=== PATIENT | male | born 1960 | race Caucasian/White ===

== ENCOUNTER 2016-05-01 08:31 | Emergency (ER) | payer BC, OTHER ==
[~2016-05-01] VITALS: Ht 180.3 cm; Wt 89.9 kg
[2016-05-01 09:13] LABS: BASO % 0 % (0-3); EOS % 0 % (0-3); HEMATOCRIT 44.2 % (39.0-53.0); HEMOGLOBIN 14.7 g/dL (13.0-17.5); LYMPH # 0.6 x10^3/uL (1.0-4.8); LYMPH % 7 % (24-48); MEAN CORPUSCULAR HEMOGLOBIN 31 pg (25-35); MEAN CORPUSCULAR HGB CONC 33 g/dL (31-37); MEAN CORPUSCULAR VOLUME 91 fL (79-100); MONO # 0.4 x10^3/uL (0.0-1.1); MONO % 4 % (0-9); NEUT # 7.9 x10^3uL (1.8-7.7); NEUT % 89 % (31-73); PLATELET COUNT 143 x10^3/uL (140-400); RED BLOOD COUNT 4.84 x10^6/uL (4.30-5.70); RED CELL DISTRIBUTION WIDTH 12.6 % (11.5-14.5); WHITE BLOOD COUNT 8.9 x10^3/uL (4.0-11.0)
[2016-05-01] MEDS ORDERED: ONDANSETRON PF 4 MG/2 ML VIAL. ONE (09:21)
--- NOTE | 2016-05-01 09:28 | RAD ---
CT head without contrast History: Altered mental status. Comparison: None. Procedure: Axial images are obtained of the head from the skull base through the vertex without IV contrast. Findings: The ventricles and sulci are normal for the patient's age. No mass-effect, intracranial mass, midline shift, hemorrhage or obvious acute infarction is identified. Basilar cisterns are patent. Bone windows demonstrate no significant calvarial abnormality. The visualized paranasal sinuses appear clear. Impression: 1. No acute intracranial process. PQRS Compliance Statement: One or more of the following individualized dose reduction techniques were utilized for this examination: 1. Automated exposure control 2. Adjustment of the mA and/or kV according to patient size 3. Use of iterative reconstruction technique
[2016-05-01] MEDS ORDERED: ONDANSETRON PF 4 MG/2 ML VIAL. IV ONE (09:30)
--- NOTE | 2016-05-01 09:33 | RAD ---
Examination: Single frontal view the chest History: History of altered mental status Comparison: None available Findings: The cardiomediastinal silhouette grossly appears unremarkable. There is no acute infiltrate or visualized pneumothorax identified. Impression: No acute cardiopulmonary findings.
[2016-05-01 09:37] LABS: ALBUMIN 3.6 g/dL (3.4-5.0); ALBUMIN/GLOBULIN RATIO 1.2 (1.0-1.7); CALCIUM 8.2 mg/dL (8.5-10.1); CREATININE 0.9 mg/dL (0.7-1.3); GFR 87.6; MAGNESIUM 1.7 mg/dL (1.8-2.4); TOTAL BILIRUBIN 0.4 mg/dL (0.2-1.0); TOTAL PROTEIN 6.5 g/dL (6.4-8.2)
[2016-05-01 09:48] LABS: BARBITURATES NEG (NEG); BENZODIAZEPINES NEG (NEG); CANNABINOIDS NEG (NEG); COCAINE NEG (NEG); METHADONE NEG (NEG); OPIATES NEG (NEG); PHENCYCLIDINE NEG (NEG)
[2016-05-01 09:49] LABS: AMPHETAMINE/METHAMPHETAMINE NEG (NEG)
[2016-05-01 09:52] LABS: BILIRUBIN,URINE NEG (NEG); CLARITY,URINE CLEAR; COLOR,URINE YELLOW; GLUCOSE,URINE 250 mg/dL (NEG)
[2016-05-01 09:53] LABS: BACTERIA,URINE FEW /HPF (0-FEW); GRANULAR CASTS,URINE OCC /HPF; HYALINE CASTS, URINE OCC /HPF; NITRITE,URINE NEG (NEG); SQUAMOUS EPITHELIAL CELL,UR FEW /LPF; UROBILINOGEN,URINE 0.2 mg/dL (0.2 mg/dL)
--- NOTE | 2016-05-01 10:09 | PHYS DOC ---
Past History Past Medical History: Anxiety, Diabetes, High Cholesterol Past Surgical History: Knee Replacement Alcohol Use: None Drug Use: None Adult General Chief Complaint Chief Complaint: ALTERED MENTAL STATUS HPI HPI 56-year-old male patient with history of diabetes was seen in his normal condition at 2200 last night by his daughter. Patient was found by his daughter at 7:30 today with confusion and not talking. Blood sugar was 85 and patient had D50 by EMS without change of his condition. In ER patient is agitated and does not talk and move all of his extremities. Review of Systems Review of Systems Unable to obtain Current Medications Current Medications Current Medications Medications (Trade) Dose Ordered Sig/Charis Start Time Stop Time Status Last Admin Dose Admin Ondansetron HCl (Zofran) 4 mg 1X ONCE 05/01/16 09:30 05/01/16 09:34 DC 05/01/16 09:28 4 MG Allergies Allergies Allergies Coded Allergies Type Severity Reaction Last Updated Verified No Known Drug Allergies 05/01/16 No Physical Exam Physical Exam Constitutional: agitated , not talking HENT: Normocephalic, atraumatic, bilateral external ears normal, oropharynx moist, no oral exudates, nose normal. [] Eyes: PERRLA, EOMI, conjunctiva normal, no discharge. [] Neck: Normal range of motion, no tenderness, supple, no stridor. [] Cardiovascular:Heart rate regular rhythm, no murmur [] Lungs & Thorax: Bilateral breath sounds clear to auscultation [] Abdomen: Bowel sounds normal, soft, no tenderness, no masses, no pulsatile masses. [] Skin: Warm, dry, no erythema, no rash. [] Back: No tenderness, no CVA tenderness. [] Extremities: No tenderness, no cyanosis, no clubbing, ROM intact, no edema. [] Neurologic: limited exam , not talking , follows some commands Psychologic: Affect normal, judgement normal, mood normal. [] Current Patient Data Vital Signs Vital Signs Date Time Temp Pulse Resp B/P Pulse Ox O2 Delivery O2 Flow Rate FiO2 05/01/16 09:42 80 18 136/84 100 Room Air 05/01/16 08:47 97.4 Lab Results Laboratory Tests Test 05/01/16 08:36 05/01/16 09:01 05/01/16 09:20 05/01/16 09:24 Glucose (Fingerstick) 186mg/dL (70-99) H 163mg/dL (70-99) H White Blood Count 8.9x10^3/uL (4.0-11.0) Red Blood Count 4.84x10^6/uL (4.30-5.70) Hemoglobin 14.7g/dL (13.0-17.5) Hematocrit 44.2% (39.0-53.0) Mean Corpuscular Volume 91fL (79-100) Mean Corpuscular Hemoglobin 31pg (25-35) Mean Corpuscular Hemoglobin Concent 33g/dL (31-37) Red Cell Distribution Width 12.6% (11.5-14.5) Platelet Count 143x10^3/uL (140-400) Neutrophils (%) (Auto) 89% (31-73) H Lymphocytes (%) (Auto) 7% (24-48) L Monocytes (%) (Auto) 4% (0-9) Eosinophils (%) (Auto) 0% (0-3) Basophils (%) (Auto) 0% (0-3) Neutrophils # (Auto) 7.9x10^3uL (1.8-7.7) H Lymphocytes # (Auto) 0.6x10^3/uL (1.0-4.8) L Monocytes # (Auto) 0.4x10^3/uL (0.0-1.1) Eosinophils # (Auto) 0.0x10^3/uL (0.0-0.7) Basophils # (Auto) 0.0x10^3/uL (0.0-0.2) Prothrombin Time 10.4SEC (9.4-11.4) Prothrombin Time INR 1.0 (0.9-1.1) PTT 23SEC (23-33) Sodium Level 140mmol/L (136-145) Potassium Level 4.0mmol/L (3.5-5.1) Chloride Level 102mmol/L (98-107) Carbon Dioxide Level 32mmol/L (21-32) Anion Gap 6 (6-14) Blood Urea Nitrogen 15mg/dL (8-26) Creatinine 0.9mg/dL (0.7-1.3) Estimated GFR (Cockcroft-Gault) 87.6 BUN/Creatinine Ratio 17 (6-20) Glucose Level 191mg/dL (70-99) H Lactic Acid Level 1.7mmol/L (0.4-2.0) Calcium Level 8.2mg/dL (8.5-10.1) L Magnesium Level 1.7mg/dL (1.8-2.4) L Total Bilirubin 0.4mg/dL (0.2-1.0) Aspartate Amino Transferase (AST) 28U/L (15-37) Alanine Aminotransferase (ALT) 46U/L (16-63) Alkaline Phosphatase 78U/L (46-116) Creatine Kinase 157U/L (39-308) Creatine Kinase MB (Mass) 1.9ng/mL (0.0-3.6) Creatine Kinase MB Relative Index 1.2% (0-4) Troponin I Quantitative < 0.017ng/mL (0-0.055) EW-Jfs-I-Type Natriuretic Peptide 116pg/mL (0-124) Total Protein 6.5g/dL (6.4-8.2) Albumin 3.6g/dL (3.4-5.0) Albumin/Globulin Ratio 1.2 (1.0-1.7) Lipase 84U/L (73-393) Urine Collection Type Unknown Urine Color Yellow Urine Clarity Clear Urine pH 6.5 Urine Specific [place] 1.020 Urine Protein 30 mg/dl (NEG-TRACE) Urine Glucose (UA) 250mg/dL (NEG) Urine Ketones (Stick) Negmg/dL (NEG) Urine Blood Neg (NEG) Urine Nitrite Neg (NEG) Urine Bilirubin Neg (NEG) Urine Urobilinogen Dipstick 0.2mg/dL (0.2 mg/dL) Urine Leukocyte Esterase Neg (NEG) Urine RBC 1-2/HPF (0-2) Urine WBC 1-4/HPF (0-4) Urine Squamous Epithelial Cells Few/LPF Urine Bacteria Few/HPF (0-FEW) Urine Hyaline Casts Occ/HPF Urine Granular Casts Occ/HPF Urine Mucus Slight/LPF Urine Opiates Screen Neg (NEG) Urine Methadone Screen Neg (NEG) Urine Barbiturates Neg (NEG) Urine Phencyclidine Screen Neg (NEG) Urine Amphetamine/Methamphetamine Neg (NEG) Urine Benzodiazepines Screen Neg (NEG) Urine Cocaine Screen Neg (NEG) Urine Cannabinoids Screen Neg (NEG) Urine Ethyl Alcohol Neg (NEG) EKG EKG EKG at 0 848 showed sinus rhythm with rate of 79 Poor R-wave progress in anteroseptal leads Radiology/Procedures Radiology/Procedures [] Impressions: Altered level of consciousness Course & Med Decision Making Course & Med Decision Making Pertinent Labs and Imaging studies reviewed. (See chart for details) Patient brought in because of confusion are not touching. Patient eventually started to talk but was confused. CT head and labs was unremarkable. Plan to admit patient with diagnosis of altered level of [place]. [place] [id number] Gamez on-call neurology was consulted at [phone]. [] Dragon Disclaimer Dragon Disclaimer This chart was dictated in whole or in part using Voice Recognition software in a busy, high-work load, and often noisy Emergency Department environment. It may contain unintended and wholly unrecognized errors or omissions. Departure Departure: Impression: Primary Impression: Altered level of consciousness Additional Impression: Diabetes mellitus Disposition: 09 ADMITTED INPATIENT (At 1002) Admitting Physician: Ignacio Cheek Condition: IMPROVED Problem Qualifiers CHADWICK NINA MD May 01, 2016 10:09
--- NOTE | 2016-05-01 10:30 | ACF ---
Admission Criteria Forms MENTAL STATUS CHANGE Clinical Indications for Inpatient Care (Place 'X' for any and all applicable criteria): Ongoing inpatient care may be needed for ANY ONE of the following(1)(2)(3)(5)(6) : [X]I. Suspected serious etiology (eg, medical disorder, [employer] event) of mental status change [ ]II. Danger to self or others not manageable at lower level of care [ ]III. Grave disability (eg, inability to perform self care necessary at lower level of care) [ ]IV. Agitation or inappropriate behavior interfering with care for primary condition (eg, attempting to discontinue lines or drains prematurely, unable to cooperate with respiratory care) [ ]V. Delirium [A] [D][E] as described by ANY ONE of the following(26): [ ]a) Delirium due to alcohol or sedative [F] withdrawal [ ]b) Delirium of uncertain etiology that has not responded to appropriate empiric treatment [ ]c) Delirium that prevents performance of a life-sustaining function (eg, feeding or hydrating oneself) [ ]. General contraindications and/or Inappropriate clinical situations for Observational Care in patients with Mental Status Change, when ANY ONE of the following is required: [ ]a) Prediction of prolongation of LOS based on ANY ONE of the following may be considered as a contraindication for observational care 2, 3, 4, 5, 6, 7, 8, 9, 10, 11 [ ]i) Age > 65 yrs. [ ]ii) Patient arriving by ambulance [ ]iii) Patient with high acuity [ ]iv) Patient requiring vital sign monitoring [ ]v) Patient on IV medication [ ]b) Systolic blood pressures 180mmHg 3,12 [ ]c) Patient with altered mental status including delirium and other alteration of consciousness, (3) [ ]d) Patient whose discharge disposition will be to a [facility] home or rehabilitation home should not be managed in Emergency Department Observation Unit. CMS rule requires 3 days hospital stay before such placement.3,13 [ ]e) Patient with failure to thrive due to broad array of etiologies 3,16,17 [ ]f) Inability to ambulate 3,14 Extended stay beyond goal length of stay for the primary condition may be needed until ALL of the following are present(3)(5): [ ]a) Underlying medical etiology of mental status change is absent, or has been established and adequately treated [ ]b) Danger to self or others is absent or manageable at lower level of care. [ ]c) Behavior crisis management, including physical or chemical restraints, is not required or available at lower level of car [ ]d) Substance or alcohol withdrawal is absent or manageable at lower level of care. [ ]e) Behavioral symptoms (eg, agitation, somnolence, inappropriate behavior) are absent, or are manageable at lower level of care. [facility] content created by [facility] has been revised. The portions of the content which have been revised are identified through the use of italic text or in bold, and [facility] has neither reviewed nor approved the modified material. All other unmodified content is copyright [facility]. Please see references footnoted in the original [facility] edition 2016 Admission Criteria Met?: Yes COURTNEY JULES May 01, 2016 10:30
[2016-05-01] MEDS ORDERED: INSU100I17 SQ (11:41)
[2016-05-01] MEDS ORDERED: INSU100I13 SQ (11:42)
[2016-05-01] MEDS ORDERED: SIMV40TA3 PO (11:42)
[2016-05-01] MEDS ORDERED: LISI2.5T PO (11:42)
[2016-05-01] MEDS ORDERED: ASPI81TA2 PO (11:43)
[2016-05-01] MEDS ORDERED: LORA1TAB PO (11:43)
[2016-05-01] MEDS ORDERED: IBUP800T PO (11:44)
[2016-05-01 11:45] VITALS: BP 132/87
[2016-05-01] MEDS ORDERED: ONDANSETRON PF 4 MG/2 ML VIAL. IV PRN (12:30)
[2016-05-01 14:30] VITALS: BP 106/72
[2016-05-01] MEDS ORDERED: IBUPROFEN 800 MG TABLET. PO PRN (17:15)
--- NOTE | 2016-05-01 17:41 | SSS ---
ADMIT DATE: 05/01/2016 HISTORY OF PRESENT ILLNESS: This is a 56-year-old male patient, who came in with altered mental status. He apparently was found by his daughter unresponsive; however, his blood sugar was 80 mg. He was given glucose and by the time he arrived to the hospital, he was still lethargic, but by the time I saw him in the afternoon, he was awake, alert, responding appropriately. He was alert and oriented to time, place and person. He has been up and about and has eaten his lunch and basically would like to go home. PAST MEDICAL HISTORY: Significant for insulin requiring type 2 diabetes, anxiety, hyperlipidemia and hypertension. PAST SURGICAL HISTORY: Significant for right total knee arthroplasty. ALLERGIES: He has no known drug allergies. MEDICATIONS: He is currently on the following medications: Aspirin 81 mg once a day, ibuprofen 800 mg every 8 hours. He is on NovoLog insulin as insulin sliding scale before meals. He is on Lantus insulin 30 units at bedtime. He is on lisinopril 2.5 mg once a day and lorazepam 1 mg at bedtime, simvastatin 40 mg at bedtime. FAMILY HISTORY: Unremarkable. SOCIAL HISTORY: The patient lives with his daughter. PHYSICAL EXAMINATION: GENERAL: When I examined him, he looked well and was clearly in no apparent respiratory distress. There was no pallor, jaundice, cyanosis or thyromegaly. No jugular venous distension. No lower limb edema. VITAL SIGNS: His heart rate was 79, blood pressure was 106/72, temperature was 98, respiratory rate 20, and oxygen saturation was 98% on room air. HEAD, EYES, EARS, NOSE, AND THROAT: Showed normocephalic, atraumatic. NECK: Supple. HEART: Showed normal first and second heart sounds with no gallop, rub or murmur. CHEST: Clear to auscultation. No crepitation or rhonchi. ABDOMEN: Distended, soft, nontender. NEUROLOGIC: He was awake, alert, responding appropriately. All cranial nerves are intact. EXTREMITIES: He moves extremities without difficulty. He ambulates without assistance or assistive devices. LABORATORY DATA: His white cell count was 8900, hemoglobin 14.7, hematocrit 44, MCV 91, and platelet count of 143,000. His prothrombin time was 10.4, INR of 1, aPTT was 23. His serum sodium was 140, potassium 4, chloride 102, bicarbonate 32, anion gap of 6, BUN , creatinine 0.9, estimated GFR was 87 mL per minute, his glucose is 191, calcium was 8.2, magnesium was 1.7. Total bilirubin, AST, ALT, and alkaline phosphatase were normal. His total protein was 6.5, albumin was 3.6. His blood sugar has been stable. His serum lipase was normal. His toxic screen was negative. Urinalysis was essentially unremarkable. ASSESSMENT AND PLAN: The patient will be discharged home to continue on all his medication. I recommended that he should get insulin at nighttime only, his Lantus insulin at night without any short acting and he should use short acting only before meals and his daughter lives with him so he has somebody to keep an eye on him. FINAL DISCHARGE DIAGNOSES: 1. Altered mental status, most likely hypoglycemia. 2. Insulin-requiring type 2 diabetes. 3. Hyperlipidemia. 4. Anxiety. MELANY GARLAND MD DR: PASCUAL/kenneth JOB#: [id number] / [id number]
[2016-05-01] MEDS ORDERED: SIMVASTATIN 40 MG TABLET. PO SCH (21:00)
[2016-05-01] MEDS ORDERED: INSULIN DETEMIR 300 UNITS/3 ML INSULN.PEN. SQ SCH (21:00)
[2016-05-01] MEDS ORDERED: LORAZEPAM 1 MG TABLET. PO SCH (21:00)
[2016-05-01] MEDS ORDERED: INSULIN ASPART 300 UNITS/3 ML INSULN.PEN SQ SCH (21:00)
[2016-05-01] MEDS ORDERED: PNEUMOC CONJ VACC 23-VALENT 0.5 ML VIAL. VAX IM ONE (21:00)
[2016-05-02] MEDS ORDERED: LISINOPRIL 2.5 MG TABLET PO SCH (09:00)
[2016-05-02] MEDS ORDERED: ASPIRIN 81 MG TAB.CHEW PO SCH (09:00)
== END 2016-05-01 17:40 | disposition home or self-care (01) ==
LOC: ER 08:31 → 1 SOUTH 10:11
PROVIDERS: ADMIT Internal Medicine; ATTEND Internal Medicine
DX: R41.82 Altered mental status, unspecified (principal); E11.649 Type 2 diabetes mellitus with hypoglycemia without coma; E78.5 Hyperlipidemia, unspecified; F41.9 Anxiety disorder, unspecified; I10 Essential (primary) hypertension; E78.00 Pure hypercholesterolemia, unspecified; Z79.4 Long term (current) use of insulin; Z96.651 Presence of right artificial knee joint
CPT/HCPCS: 36415; 70450; 71010; 80053; 81001; 82553; 82947; 83605; 83690; 83735; 83880; 84484; 85027; 85610; 85730; 87040; 96374; 96376; 99285; G0378; G0481; J2405; 96360; G0379; J1815

== ENCOUNTER 2017-01-13 07:37 | Emergency (ER) | payer BC ==
[~2017-01-13] VITALS: Ht 180.3 cm; Wt 93.0 kg
[~2017-01-13 07:37] MED LIST: ASPI-630 PO; IBUP800T19 PO; INSU100I13 SQ; INSU100I17 SQ; LISI2.5T PO; LORA1TAB PO; SIMV40TA3 PO
[2017-01-13] MEDS ORDERED: IV NORMAL SALINE 1,000ML 1,000 ML IV SCH (07:42)
[2017-01-13] MEDS ORDERED: IV DEXTROSE 10% 500 ML IV ONE (07:45)
[2017-01-13] MEDS ORDERED: 0.9 % SODIUM CHLORIDE 10 ML DISP.SYRIN. IV PRN (07:45)
--- NOTE | 2017-01-13 08:08 | PHYS DOC ---
Past History Past Medical History: Anxiety, Diabetes, High Cholesterol Past Surgical History: Knee Replacement Smoking: Non-smoker Alcohol Use: None Drug Use: None Adult General Chief Complaint Chief Complaint: HYPOGLYCEMIA HPI HPI Is a pleasant 56-year-old male who is , lives with his daughter at home he is on Lantus and NovoLog insulin he says that he took his typical doses last night based on his sliding scale went to sleep and was found to be altered this morning by his daughter. Patient has no points of headache, chest pain, just abdominal nausea without vomiting, diarrhea or abdominal pain. Patient has some pain to his tongue but no complaints of focal neurologic deficit, he does not remember why exactly he was altered this morning. EMS found him this morning with an Accu-Chek of 60 gave him D10 bolus in route and now his sugar is 120. This patient seems still somewhat confused and amnestic to the event. He denies any chest pain, shortness of breath, focal vision changes or problems speaking. Patient is some issues with memory secondary to the hypoglycemic event. He denies any change in medications, change in eating habits, or recent sick contacts. Review of Systems Review of Systems Constitutional: Denies fever or chills [] Eyes: Denies change in visual acuity, redness, or eye pain [] HENT: Denies nasal congestion or sore throat patient does complain of a mild sore tongue[] Respiratory: Denies cough or shortness of breath [] Cardiovascular: No additional information not addressed in HPI [] GI: Denies abdominal pain, vomiting, bloody stools or diarrhea he only complains of nausea [] : Denies dysuria or hematuria [] Musculoskeletal: Denies back pain or joint pain [] Integument: Denies rash or skin lesions [] Neurologic: Denies headache, focal weakness or sensory changes patient is somewhat confused[] Endocrine: Denies polyuria or polydipsia [] All other systems were reviewed and found to be within normal limits, except as documented in this note. Current Medications Current Medications Current Medications Medications (Trade) Dose Ordered Sig/Charis Start Time Stop Time Status Last Admin Dose Admin Dextrose 500 ml @ 0 mls/hr 1X ONCE 01/13/17 07:45 01/13/17 07:57 DC Ondansetron HCl (Zofran) 4 mg 1X ONCE 01/13/17 08:15 01/13/17 08:16 Sodium Chloride (Normal Saline Flush) 10 ml QSHIFT PRN 01/13/17 07:45 Allergies Allergies Allergies Coded Allergies Type Severity Reaction Last Updated Verified No Known Drug Allergies 05/01/16 No Physical Exam Physical Exam Constitutional: Well developed, well nourished, no acute distress, non-toxic appearance. Patient is somewhat confused but able to answer all questions with some time. HENT: Normocephalic, atraumatic, bilateral external ears normal, oropharynx moist, he has some bite osman to the tip of the tongue no other oral lesions no oral exudates, nose normal. [] Eyes: PERRLA, EOMI, conjunctiva normal, no discharge. [] Neck: Normal range of motion, no tenderness, supple, no stridor. [] Cardiovascular:Heart rate regular rhythm, no murmur [] Lungs & Thorax: Bilateral breath sounds clear to auscultation [] Abdomen: Bowel sounds normal, soft, no tenderness, no masses, no pulsatile masses. [] Skin: Warm, dry, no erythema, no rash. [] Back: No tenderness, no external osman or trauma. [] Extremities: No tenderness, no cyanosis, no clubbing, ROM intact, no edema. [] Neurologic: Alert and oriented X 3, normal motor function, normal sensory function, no focal deficits noted. He is somewhat confused but is able to answer questions given time [] Psychologic: Affect normal, judgement normal, Current Patient Data Lab Results Laboratory Tests Test 01/13/17 07:50 01/13/17 07:58 01/13/17 08:05 White Blood Count 5.6 x10^3/uL (4.0-11.0) Red Blood Count 4.59 x10^6/uL (4.30-5.70) Hemoglobin 14.7 g/dL (13.0-17.5) Hematocrit 42.1 % (39.0-53.0) Mean Corpuscular Volume 92 fL (79-100) Mean Corpuscular Hemoglobin 32 pg (25-35) Mean Corpuscular Hemoglobin Concent 35 g/dL (31-37) Red Cell Distribution Width 12.8 % (11.5-14.5) Platelet Count 172 x10^3/uL (140-400) Neutrophils (%) (Auto) 73 % (31-73) Lymphocytes (%) (Auto) 18 % (24-48) L Monocytes (%) (Auto) 7 % (0-9) Eosinophils (%) (Auto) 2 % (0-3) Basophils (%) (Auto) 0 % (0-3) Neutrophils # (Auto) 4.1 x10^3uL (1.8-7.7) Lymphocytes # (Auto) 1.0 x10^3/uL (1.0-4.8) Monocytes # (Auto) 0.4 x10^3/uL (0.0-1.1) Eosinophils # (Auto) 0.1 x10^3/uL (0.0-0.7) Basophils # (Auto) 0.0 x10^3/uL (0.0-0.2) Sodium Level 141 mmol/L (136-145) Potassium Level 3.9 mmol/L (3.5-5.1) Chloride Level 106 mmol/L (98-107) Carbon Dioxide Level 28 mmol/L (21-32) Anion Gap 7 (6-14) Blood Urea Nitrogen 18 mg/dL (8-26) Creatinine 1.0 mg/dL (0.7-1.3) Estimated GFR (Cockcroft-Gault) 77.6 BUN/Creatinine Ratio 18 (6-20) Glucose Level 129 mg/dL (70-99) H Calcium Level 8.3 mg/dL (8.5-10.1) L Magnesium Level 1.8 mg/dL (1.8-2.4) Total Bilirubin 0.3 mg/dL (0.2-1.0) Aspartate Amino Transferase (AST) 21 U/L (15-37) Alanine Aminotransferase (ALT) 30 U/L (16-63) Alkaline Phosphatase 68 U/L (46-116) Creatine Kinase 123 U/L (39-308) Creatine Kinase MB (Mass) 2.0 ng/mL (0.0-3.6) Creatine Kinase MB Relative Index 1.6 % (0-4) Troponin I Quantitative < 0.017 ng/mL (0-0.055) FZ-Asg-P-Type Natriuretic Peptide 76 pg/mL (0-124) Total Protein 6.4 g/dL (6.4-8.2) Albumin 3.5 g/dL (3.4-5.0) Albumin/Globulin Ratio 1.2 (1.0-1.7) Lipase 310 U/L (73-393) Glucose (Fingerstick) 122 mg/dL (70-99) H Urine Collection Type Unknown Urine Color Yellow Urine Clarity Clear Urine pH 5.5 Urine Specific [place] 1.020 Urine Protein Trace (NEG-TRACE) Urine Glucose (UA) Neg mg/dL (NEG) Urine Ketones (Stick) Neg mg/dL (NEG) Urine Blood Neg (NEG) Urine Nitrite Neg (NEG) Urine Bilirubin Neg (NEG) Urine Urobilinogen Dipstick 0.2 mg/dL (0.2 mg/dL) Urine Leukocyte Esterase Neg (NEG) Urine RBC 0 /HPF (0-2) Urine WBC Rare /HPF (0-4) Urine Squamous Epithelial Cells Occ /LPF Urine Bacteria 0 /HPF (0-FEW) Urine Mucus Slight /LPF EKG EKG []KG time at 7:55 AM 1128. He demonstrates a sinus rhythm at 72 with normal NH interval of 120, QRS width is normal, QTc was 420 which is as normal looking EKG with out evidence of ischemia or ST segment changes consistent with a heart attack. Radiology/Procedures Radiology/Procedures [] [address] [address] IMAGING REPORT Signed PATIENT: MELECIO PATEL ACCOUNT: [id number] : 1960 LOCATION: ER AGE: 56 SEX: M EXAM STATUS: REG ER ORD. PHYSICIAN: DINA DUBON MD REASON: dizziness PROCEDURE: CHEST AP ONLY Chest x-ray Indication: Low blood sugar, dizziness Technique: Portable AP chest x-ray Comparison: 05/01/2016 Findings: Heart is normal in size. Lungs are clear. No pneumothorax or pleural effusion. Visualized bony thorax is within normal limits. Impression: No acute cardiopulmonary process. DICTATED AND SIGNED BY: ALMITA CHAMORRO DO DATE: 01/13/17823 CC: DINA DUBON MD; JOSE ALVARADO MD ~ [address] [address] IMAGING REPORT Signed PATIENT: MELECIO PATEL ACCOUNT: [id number] : 1960 LOCATION: ER AGE: 56 SEX: M EXAM STATUS: REG ER ORD. PHYSICIAN: DINA DUBON MD REASON: dizziness PROCEDURE: CT HEAD WO CONTRAST CT head Indication:dizziness Technique: CT head without IV contrast Comparison: Previous study from 05/01/2016 Findings: No pathologic extra-axial or intra-axial fluid collection. The ventricles and basal cisterns are within normal limits. No focal loss of dueñas-white differentiation. No calvarial lesions. Visualized paranasal sinuses and mastoid air cells are clear. No acute intracranial bleed. Small circumscribed soft tissue lesion in the right posterolateral scalp most likely sebaceous cyst. Impression: No acute intracranial process on this noncontrast CT. PQRS Compliance Statement: One or more of the following individualized dose reduction techniques were utilized for this examination: 1. Automated exposure control 2. Adjustment of the mA and/or kV according to patient size 3. Use of iterative reconstruction technique DICTATED AND SIGNED BY: ALMITA CHAMORRO DO DATE: 01/13/17 0832 CC: DINA DUBON MD; JOSE ALVARADO MD ~ Course & Med Decision Making Course & Med Decision Making Pertinent Labs and Imaging studies reviewed. (See chart for details) concern with this patient given the oral lesion and the continued amnestic features that he displays on physical exam is a seizure. This may been a hypoglycemic event secondary to misuse of Lantus and NovoLog my concern though is that patient despite having an Accu-Chek that's normal at 120 still exhibit some confusion.\\ Based on the stroke scale listed below patient has an NIH stroke scale of 1 and that his level of consciousness he only answers one question correctly or not he has a normal neuro exam. 1a. Level of consciousness: 0 = Alert; keenly responsive. 1 = Not alert; but arousable by minor stimulation to obey, answer, or respond. 2 = Not alert; requires repeated stimulation to attend, or is obtunded and requires strong or painful stimulation to make movements (not stereotyped). 3 = Responds only with reflex motor or autonomic effects or totally unresponsive , flaccid, and areflexic. 1b. LOC questions: 0 = Answers both questions correctly. 1 = Answers one question correctly. 2 = Answers neither question correctly. 1c. LOC commands: 0 = Performs both tasks correctly. 1 = Performs one task correctly. 2 = Performs neither task correctly. 2. Best gaze: 0 = Normal. 1 = Partial gaze palsy; gaze is abnormal in one or both eyes, but forced deviation or total gaze paresis is not present. 2 = Forced deviation, or total gaze paresis not overcome by the oculocephalic maneuver. 3. Visual: 0 = No visual loss. 1 = Partial hemianopia. 2 = Complete hemianopia. 3 = Bilateral hemianopia (blind including cortical blindness). 4. Facial palsy: 0 = Normal symmetrical movements. 1 = Minor paralysis (flattened nasolabial fold, asymmetry on smiling). 2 = Partial paralysis (total or near-total paralysis of lower face). 3 = Complete paralysis of one or both sides (absence of facial movement in the upper and lower face). 5. Motor arm: 0 = No drift; limb holds 90 (or 45) degrees for full 10 seconds. 1 = Drift; limb holds 90 (or 45) degrees, but drifts down before full 10 seconds ; does not hit bed or other support. 2 = Some effort against gravity; limb cannot get to or maintain (if cued) 90 ( or 45) degrees, drifts down to bed, but has some effort against gravity. 3 = No effort against gravity; limb falls. 4 = No movement. UN = Amputation or joint fusion, explain: 5a. Left arm 5b. Right arm 6. Motor le = No drift; leg holds 30-degree position for full 5 seconds. 1 = Drift; leg falls by the end of the 5-second period but does not hit bed. 2 = Some effort against gravity; leg falls to bed by 5 seconds, but has some effort against gravity. 3 = No effort against gravity; leg falls to bed immediately. 4 = No movement. UN = Amputation or joint fusion, explain: 6a. Left leg 6b. Right leg 7. Limb ataxia: 0 = Absent. 1 = Present in one limb. 2 = Present in two limbs. UN = Amputation or joint fusion 8. Sensory: 0 = Normal; no sensory loss. 1 = Vijb-gj-usdnnihz sensory loss; patient feels pinprick is less sharp or is dull on the affected side; or there is a loss of superficial pain with pinprick , but patient is aware of being touched. 2 = Severe to total sensory loss; patient is not aware of being touched in the face, arm, and leg. 9. Best language: 0 = No aphasia; normal. 1 = Udns-rm-gvjgmzuu aphasia; some obvious loss of fluency or facility of comprehension, without significant limitation on ideas expressed or form of expression. Reduction of speech and/or comprehension, however, makes conversation about provided materials difficult or impossible. For example, in conversation about provided materials, examiner can identify picture or naming card content from patient's response. 2 = Severe aphasia; all communication is through fragmentary expression; great need for inference, questioning, and guessing by the listener. Range of information that can be exchanged is limited; listener carries burden of communication. Examiner cannot identify materials provided from patient response. 3 = Mute, global aphasia; no usable speech or auditory comprehension. 10. Dysarthria: 0 = Normal. 1 = Eugv-rr-ckzohjkv dysarthria; patient slurs at least some words and, at worst , can be understood with some difficulty. 2 = Severe dysarthria; patient's speech is so slurred as to be unintelligible in the absence of or out of proportion to any dysphasia, or is mute/anarthric. UN = Intubated or other physical barrier, explain: 11. Extinction and inattention (formerly neglect): 0 = No abnormality. 1 = Visual, tactile, auditory, spatial, or personal inattention or extinction to bilateral simultaneous stimulation in one of the sensory modalities. 2 = Profound milly-inattention or extinction to more than one modality; does not recognize own hand or orients to only one side of space. []My seizure differential. Acute ischemic or hemorrhagic stroke, particularly lobar hemorrhage subdural hematoma Subarachnoid hemorrhage subarachnoid hemorrhage Traumatic brain injury Hypoxic-ischemic injury Brain abscess Meningitis or encephalitis Acute symptomatic seizures may also be caused by an acute medical illness, metabolic disturbance, substance ingestion or withdrawal, and medication exposure Hypoglycemia Hyperglycemia Nonketotic hyperglycemia Hyponatremia Hypocalcemia Hypomagnesemia Uremia secondary to renal failure Hyperthyroidism Acute intermittent porphyria (AIP) Drug intoxication, poisoning, and overdose `` Cocaine, amphetamines, and other illicit substances may cause seizures after acute intoxication. Prescribed medications that may lower the seizure threshold or cause seizures in overdose are listed in the table Cerebrovascular disease Primary or metastatic brain tumors Vascular malformations Prior central nervous system infection, such as neurocysticercosis Head injury (see "Post-traumatic seizures and epilepsy") Neurodegenerative dementia, including Alzheimer disease DIFFERENTIAL DIAGNOSIS Seizure is primarily a clinical diagnosis, and accurate diagnosis requires differentiating seizure from other common clinical events that can mimic seizure. In adults, the primary conditions to consider in patients presenting with transient or paroxysmal neurologic events Syncope Transient ischemic attack (particularly in older adults) Migraine Panic attack and anxiety Psychogenic nonepileptic seizure Transient global amnesia (rare before the age of 50 years) Narcolepsy with cataplexy Paroxysmal movement disorders Course of his ER evaluation patient's mentation is improved. Patient was given D10 IV fluids posterior reversible 100 when he was provided complete needle after his nausea abated with IV AND ZOFRAN. ALL PATIENT REMEMBERS TAKING ANY EXTRA INSULIN LAST NIGHT SECONDARY TO HIGH SUGARS BEFORE SLEEP. HE SAID SHE HAD 4 DISTINCT EPISODES LIKE THIS IN LAST SEVERAL YEARS IS BEEN CHANGED FROM ORAL MEDICATIONS IV MEDICATIONS. HE LIKELY NEEDS MORE EDUCATION. He's been offered to the hospital. Observation secondary to the duration of half life of Lantus. Family is at the bedside referred him home and watching very closely make sure that he does eat his meals and take appropriate dose of medications. Dragon Disclaimer Dragon Disclaimer This electronic medical record was generated, in whole or in part, using a voice recognition dictation system. Departure Departure: Impression: Primary Impression: Altered level of consciousness Additional Impressions: Diabetes mellitus Hypoglycemia Disposition: ADMITTED INPATIENT Condition: STABLE Referrals: JOSE ALVARADO MD (PCP) Patient Instructions: Hypoglycemia (Low Blood Sugar) Additional Instructions: discharge: I've spoken with the patient and/or caregivers. I've explained the patient's condition, diagnosis and treatment plan based on information available to me at this time. I've answered the patient's and/or caregivers questions and addressed any concerns. The patient and/or caregivers have a good understanding the patient's diagnosis, condition and treatment plan as can be expected at this point. Vital signs have been stabilized. The patient's condition is stable for discharge from the emergency department. The patient will pursue further outpatient evaluation with her primary care provider or other designated consulting physician as outlined in the discharge instructions. Patient and/or caregivers are agreeable to this plan of care and follow-up instructions have been explained in detail. The patient and/or caregivers have received these instructions in written format and expressed understanding of these discharge instructions. The patient and her caregivers are aware that if any significant change in condition or worsening of symptoms should prompt him to immediately return to this of the closest emergency department. If an emergent department is not readily available I would encourage him to call 911. Problem Qualifiers DINA DUBON MD Jan 13, 2017 08:08
[2017-01-13 08:13] LABS: BASO % 0 % (0-3); EOS # 0.1 x10^3/uL (0.0-0.7); EOS % 2 % (0-3); HEMATOCRIT 42.1 % (39.0-53.0); HEMOGLOBIN 14.7 g/dL (13.0-17.5); LYMPH % 18 % (24-48); MEAN CORPUSCULAR HEMOGLOBIN 32 pg (25-35); MEAN CORPUSCULAR HGB CONC 35 g/dL (31-37); MEAN CORPUSCULAR VOLUME 92 fL (79-100); MONO # 0.4 x10^3/uL (0.0-1.1); MONO % 7 % (0-9); NEUT # 4.1 x10^3uL (1.8-7.7); NEUT % 73 % (31-73); PLATELET COUNT 172 x10^3/uL (140-400); RED BLOOD COUNT 4.59 x10^6/uL (4.30-5.70); RED CELL DISTRIBUTION WIDTH 12.8 % (11.5-14.5); WHITE BLOOD COUNT 5.6 x10^3/uL (4.0-11.0)
[2017-01-13] MEDS ORDERED: ONDANSETRON PF 4 MG/2 ML VIAL. IV ONE (08:15)
--- NOTE | 2017-01-13 08:27 | RAD ---
Chest x-ray Indication: Low blood sugar, dizziness Technique: Portable AP chest x-ray Comparison: 05/01/2016 Findings: Heart is normal in size. Lungs are clear. No pneumothorax or pleural effusion. Visualized bony thorax is within normal limits. Impression: No acute cardiopulmonary process.
[2017-01-13 08:31] LABS: ALBUMIN 3.5 g/dL (3.4-5.0); ALBUMIN/GLOBULIN RATIO 1.2 (1.0-1.7); CALCIUM 8.3 mg/dL (8.5-10.1); GFR 77.6; MAGNESIUM 1.8 mg/dL (1.8-2.4); POTASSIUM 3.9 mmol/L (3.5-5.1); TOTAL BILIRUBIN 0.3 mg/dL (0.2-1.0); TOTAL PROTEIN 6.4 g/dL (6.4-8.2)
--- NOTE | 2017-01-13 08:39 | RAD ---
CT head Indication:dizziness Technique: CT head without IV contrast Comparison: Previous study from 05/01/2016 Findings: No pathologic extra-axial or intra-axial fluid collection. The ventricles and basal cisterns are within normal limits. No focal loss of dueñas-white differentiation. No calvarial lesions. Visualized paranasal sinuses and mastoid air cells are clear. No acute intracranial bleed. Small circumscribed soft tissue lesion in the right posterolateral scalp most likely sebaceous cyst. Impression: No acute intracranial process on this noncontrast CT. PQRS Compliance Statement: One or more of the following individualized dose reduction techniques were utilized for this examination: 1. Automated exposure control 2. Adjustment of the mA and/or kV according to patient size 3. Use of iterative reconstruction technique
[2017-01-13 08:44] LABS: BILIRUBIN,URINE NEG (NEG); CLARITY,URINE CLEAR; COLOR,URINE YELLOW; GLUCOSE,URINE NEG (NEG); NITRITE,URINE NEG (NEG); RBC,URINE 0 /HPF (0-2); UROBILINOGEN,URINE 0.2 mg/dL (0.2 mg/dL)
[2017-01-13 08:45] LABS: BACTERIA,URINE 0 /HPF (0-FEW); SQUAMOUS EPITHELIAL CELL,UR OCC /LPF; WBC,URINE RARE /HPF (0-4)
[2017-01-13 08:55] VITALS: BP 124/86
--- NOTE | 2017-01-13 12:44 | EKG ---
[address] [address] Test Date: 2017-01-13 Test Time: 07:55:25 Pat Name: MELECIO PATEL Department: Room: Gender: M Entry Level Software Engineer: ISABELLE : 1960 Requested By: DINA DUBON Order Number: [id number] Reading MD: Mahesh Pimentel Measurements Intervals [place] Rate: 72 P: 36 IA: 122 QRS: 35 QRSD: 84 T: 45 QT: 382 QTc: 420 Interpretive Statements SINUS RHYTHM Electronically Signed On 01-19-2017 14:32:42 [employer]CRUITING AND SELECTION CONSULTANT by Mahesh Pimentel
== END 2017-01-13 09:42 | disposition other institution (70) ==
LOC: ER 07:37
DX: R41.82 Altered mental status, unspecified (principal); E11.649 Type 2 diabetes mellitus with hypoglycemia without coma; Z79.4 Long term (current) use of insulin; E78.00 Pure hypercholesterolemia, unspecified; F41.9 Anxiety disorder, unspecified
CPT/HCPCS: 36415; 70450; 71010; 80053; 81001; 82553; 82947; 83690; 83735; 83880; 84443; 84484; 85025; 93005; 96361; 96374; 99285; J2405; J7060; 96365; 96375; J7030

== ENCOUNTER → 2020-07-06 | Outpatient (CLI) | payer BC ==
[~2020-07-06] MED LIST changes: +LORA-254 PO; -LORA1TAB PO; +SIMV40TA18 PO; -SIMV40TA3 PO
--- NOTE | 2020-07-06 09:20 | RAD ---
EXAM: Lumbar spine, 5 views. HISTORY: Pain. COMPARISON: None. FINDINGS: 5 views of the lumbar spine are obtained. There is minimal retrolisthesis of L2 on L3. Ther e is multilevel endplate remodeling. There is disc space narrowing predominantly at L2-L3. There are several small lower thoracic and upper lumbar endplate Schmorl's nodes. There is facet arthropathy pr edominantly at the mid lower lumbar levels. IMPRESSION: 1. Multilevel degenerative change, described above. 2. No acute osseous finding. Electronically signed by: Evelin Rai MD (07/06/2020 9:17 AM) [id number]
--- NOTE | 2020-07-06 09:21 | RAD ---
EXAM: Left knee, 3 views. HISTORY: Pain and limited range of motion. COMPARISON: None. FINDINGS: 3 views of the left knee are obtained. There is a left knee arthroplasty in expected positi on. There is no fracture, dislocation or subluxation. There is trace joint fluid. There are vascular calcifications. IMPRESSION: Left knee arthroplasty in expected position. Electronically signed by: Evelin Rai MD (07/06/2020 9:19 AM) [id number]
== END ==
LOC: RAD 08:39
PROVIDERS: ATTEND Orthopaedic Surgery
DX: M47.816 Spondylosis without myelopathy or radiculopathy, lumbar region (principal); M25.562 Pain in left knee; Z96.652 Presence of left artificial knee joint
CPT/HCPCS: 72110; 73562

== ENCOUNTER → 2020-08-09 | Outpatient (CLI) | payer BC ==
--- NOTE | 2020-08-09 12:56 | RAD ---
EXAM: XR HAND_RIGHT 3 VIEWS 08/09/2020 9:51 AM CLINICAL INDICATION: Chronic right hand pain, no injury COMPARISON: None TECHNIQUE: 3 views of the right FINDINGS: No acute fracture. Alignment is normal. There is mild degenerative joint disease of the in terphalangeal joints and first CMC joint with small osteophytes and mild joint space narrowing. This is greatest at the little finger DIP joint where it is more moderate. Mild degenerative joint disease of the distal radioulnar joint. No erosions. Bone mineralization is normal. No soft tissue abnormali ty. IMPRESSION: Multiple focal degenerative joint disease, greatest at the little finger DIP joint where it is moderate. Electronically signed by: Gisselle Bro MD (08/09/2020 12:54 PM) [id number]
== END ==
LOC: RAD 09:46
PROVIDERS: ATTEND Orthopaedic Surgery
DX: M19.041 Primary osteoarthritis, right hand (principal); M18.11 Unilateral primary osteoarthritis of first carpometacarpal joint, right hand; M25.741 Osteophyte, right hand
CPT/HCPCS: 73130